=== PATIENT | female | born 1985 | race Caucasian/White ===

== ENCOUNTER 2017-03-16 08:30 | Inpatient (IN) | payer OTHER ==
[2017-03-16 10:14] VITALS: BMI 39.8
[2017-03-16 10:55] LABS: BASO % 0.3 % (0-2.0); EOS % 0.6 % (0-4.5); HEMATOCRIT 37.5 % (32.4-45.2); HEMOGLOBIN 11.8 GM/dL (10.7-15.3); LYMPH % 22.7 % (8-40); MCH 24.7 pg (25.7-33.7); MCHC 31.5 g/dl (32.0-36.0); MEAN CELL VOLUME 78.2 fl (80-96); MEAN PLT VOLUME 9.7 fl (7.5-11.1); MONO % 6.5 % (3.8-10.2); NEUT % 69.9 % (42.8-82.8); PLATELET COUNT 241 K/MM3 (134-434); RBC 4.79 M/mm3 (3.60-5.2); RDW 15.5 % (11.6-15.6); WHITE BLOOD COUNT 9.1 K/mm3 (4.0-10.0)
[2017-03-16] MEDS ORDERED: BUTORPHANOL TARTRATE 1 MG/ML VIAL ONE ×2 (10:56)
[2017-03-16] MEDS ORDERED: PROMETHAZINE HCL 25 MG/1 ML VIAL ONE (10:56)
[2017-03-16 11:18] LABS: INR 0.92 (0.82-1.09); PROTHROMBIN TIME (PATIENT) 10.4 SEC (9.98-11.88)
[2017-03-16 11:27] LABS: CHLORIDE 108 mmol/L (98-107); POTASSIUM 4.3 mmol/L (3.5-5.1); SODIUM 139 mmol/L (136-145)
[2017-03-16] MEDS ORDERED: BUTORPHANOL TARTRATE 1 MG/ML VIAL IVPB ONE (11:30)
[2017-03-16] MEDS ORDERED: DEXTROSE 5%-LACTATED RINGERS 1,000 ML IV SCH (11:30)
[2017-03-16 11:34] LABS: ANION GAP 9 (8-16); BLOOD UREA NITROGEN 13 mg/dL (7-18); CALCIUM 8.3 mg/dL (8.5-10.1); CO2 22 mmol/L (21-32); CREATININE 0.6 mg/dL (0.55-1.02); GLUCOSE,RANDOM 75 mg/dL (74-106)
[2017-03-16] MEDS ORDERED: PROMETHAZINE HCL 25 MG/1 ML VIAL IVPB ONE (11:45)
--- NOTE | 2017-03-16 11:57 | HP ---
Past Medical History - Admission Chief Complaint: Labor pain History of Present Illness: 31 yo yo EDC 03/14/17, @ 40 weeks gestation, admitted for labor pain. She denies any vaginal bleeding, nor ROM. History Source: Patient Limitations to Obtaining History: No Limitations - Past Medical History ...: 4 ...Para: 3 ...Term: 3 ...LMP: 06/22/16 ... Weeks Gestation by Dates: 38.1 ...EDC by Dates: 03/29/17 ...EDC by Sono: 03/14/17 Heme/Onc: Yes: Anemia - Past Surgical History Past Surgical History: Yes: None Hx Myomectomy: No Hx Transabdominal Cerclage: No - Smoking History Smoking history: Never smoked Have you smoked in the past 12 months: No - Alcohol/Substance Use Hx Alcohol Use: No History of Substance Use: reports: None Home Medications - Allergies Allergies/Adverse Reactions: Allergies Allergy/AdvReac Type Severity Reaction Status Date / Time No Known Allergies Allergy Verified 06/16/11 04:21 - Home Medications Home Medications: Ambulatory Orders Iron 1 tab PO DAILY 03/16/17 Vitamins (Sjr) - 1 tab PO DAILY 03/16/17 Family Disease History - Family Disease History Family History: Unremarkable Review of Systems - Review of Systems Constitutional: reports: No Symptoms Eyes: reports: No Symptoms HENT: reports: No Symptoms Neck: reports: No Symptoms Cardiovascular: reports: No Symptoms Respiratory: reports: No Symptoms Gastrointestinal: reports: No Symptoms Genitourinary: reports: Pain Neurological: reports: No Symptoms Endocrine: reports: No Symptoms Hematology/Lymphatic: reports: No Symptoms Psychiatric: reports: No Symptoms Pain Intensity: 7 Physical Exam - Maternity Vital Signs: Vital Signs Temperature 98.0 F 03/16/17 10:00 Pulse Rate 83 03/16/17 11:00 Respiratory Rate 20 03/16/17 11:00 Blood Pressure 131/71 03/16/17 11:00 O2 Sat by Pulse Oximetry (%) Constitutional: Yes: Well Nourished Eyes: Yes: Conjunctiva Clear HENT: Yes: Atraumatic Neck: Yes: Supple Cardiovascular: Yes: Regular Rate and Rhythm Lungs: Clear to auscultation - Vaginal Exam/OB Dilatation (cm): 3 Effacement (%): 90 Amniotic Membrane Status: Intact Station: -2 - Physical Exam ...Motor Strength: WNL Psychiatric: Yes: Alert, Oriented - Labs Lab Results: CBC, BMP 03/16/17 10:15 Assessment/Plan Active labor Admit to L&D Analgesia as needed Anticipate
[2017-03-16] MEDS ORDERED: ELECTROLYTE-148 SOLN 1,000 ML IV SCH (12:00)
[2017-03-16] MEDS ORDERED: OXYTOCIN 15 UNITS/ LR 250 ML 15 UNIT/250 ML INFUS.BAG IVPB SCH (12:00)
--- NOTE | 2017-03-16 12:03 | PN ---
Progress Note (short form) - Note Progress Note: Patient evaluated, She's lying comfortably in bed. She's status post stadol. FHR : Reassuring VE : 5-6 / 100 / -1 AROM ( clear ) A / P : Active labor Pitocin augmentation Anticipate
[2017-03-16] MEDS ORDERED: OXYTOCIN 20 UNITS in 0.9% NS 40 UNIT/2,000 ML INFUS.BAG IV ONE (12:32)
[2017-03-16] MEDS ORDERED: LIDOCAINE HCL 1% PRESERVATIVE FREE - 30ML VIAL ONE (12:32)
[2017-03-16] MEDS ORDERED: BENZOCAINE 28 GM HEMORRHOIDAL OINTMENT TP PRN (14:02)
[2017-03-16] MEDS ORDERED: ACETAMINOPHEN 325 MG TABLET (FP) PO PRN (14:02)
[2017-03-16] MEDS ORDERED: METHYLERGONOVINE MALEATE 0.2 MG/1 ML AMP IM PRN (14:02)
[2017-03-16] MEDS ORDERED: WITCH HAZEL 50% (TUCKS) 40 PAD/JAR PAD TP PRN (14:02)
[2017-03-16] MEDS ORDERED: BENZOCAINE 20% 57 GM BOTTLE TP PRN (14:02)
[2017-03-16] MEDS ORDERED: BISACODYL 10 MG SUPP.RECT RC PRN (14:02)
[2017-03-16] MEDS ORDERED: IBUPROFEN 600 MG TABLET (FP) PO PRN (14:02)
--- NOTE | 2017-03-16 14:05 | PN ---
Delivery - Delivery Vaginal Delivery: Spontaneous Type of Anesthesia: Local Episiotomy/Laceration: None EBL (cc): 300 Delivery, Single - Feeding Plan Initial Plan: Elected not to breastfeed exclusively throughout hospitalization Remarks - Remarks Remarks: Normal spontaneous vaginal delivery of a live over intant perineum. Nose / Oropharynx suction @ perineum. Cord clamp and cut. Placenta expelled spontaneously intact. Mother in stable condition
[2017-03-16] MEDS ORDERED: OXYTOCIN 20 UNITS in 0.9% NS 20 UNIT/1,000 ML INFUS.BAG IV SCH (14:15)
[2017-03-16] MEDS: FERROUS SO4 325 MG TABLET (FP) PO SCH (19:11)
--- NOTE | 2017-03-17 06:04 | PN ---
Post Progress Note - Subjective Subjective: 31 yo Para 4 status post vaginal delivery, seen and evaluated. Doing well. Type of Delivery: Vital Signs: Vital Signs Temperature 98 F 03/17/17 05:52 Pulse Rate 79 03/17/17 05:52 Respiratory Rate 18 03/17/17 05:52 Blood Pressure 127/67 03/17/17 05:52 O2 Sat by Pulse Oximetry (%) Breast Exam: Yes: Soft Uterus: Yes: Fundus Firm Abdomen/GI: Yes: Abdomen soft, Tolerating PO Lochia: Yes: Rubra Lochia, amount: Moderate Extremities: Yes: Calves non-tender Perineum: Yes: Intact Activity: Ambulating - Labs Labs: CBC WBC 9.1 K/mm3 (4.0-10.0) 03/16/17 10:15 RBC 4.79 M/mm3 (3.60-5.2) 03/16/17 10:15 Hgb 11.8 GM/dL (10.7-15.3) D 03/16/17 10:15 Hct 37.5 % (32.4-45.2) 03/16/17 10:15 MCV 78.2 fl (80-96) L 03/16/17 10:15 MCH 24.7 pg (25.7-33.7) L 03/16/17 10:15 MCHC 31.5 g/dl (32.0-36.0) L 03/16/17 10:15 RDW 15.5 % (11.6-15.6) 03/16/17 10:15 Plt Count 241 K/MM3 (134-434) 03/16/17 10:15 MPV 9.7 fl (7.5-11.1) D 03/16/17 10:15 Neutrophils % 69.9 % (42.8-82.8) 03/16/17 10:15 Lymphocytes % 22.7 % (8-40) 03/16/17 10:15 Monocytes % 6.5 % (3.8-10.2) 03/16/17 10:15 Eosinophils % 0.6 % (0-4.5) 03/16/17 10:15 Basophils % 0.3 % (0-2.0) 03/16/17 10:15 Assessment/Plan Status post normal vaginal delivery Stable Continue routine care
[2017-03-17 08:07] LABS: BASO % 0.4 % (0-2.0); HEMATOCRIT 33.8 % (32.4-45.2); HEMOGLOBIN 10.6 GM/dL (10.7-15.3); LYMPH % 30.9 % (8-40); MCH 24.6 pg (25.7-33.7); MCHC 31.5 g/dl (32.0-36.0); MEAN CELL VOLUME 78.1 fl (80-96); MEAN PLT VOLUME 9.2 fl (7.5-11.1); MONO % 7.9 % (3.8-10.2); NEUT % 59.8 % (42.8-82.8); PLATELET COUNT 202 K/MM3 (134-434); RBC 4.33 M/mm3 (3.60-5.2); RDW 15.2 % (11.6-15.6); WHITE BLOOD COUNT 9.7 K/mm3 (4.0-10.0)
[2017-03-17] MEDS: FERROUS SO4 325 MG TABLET (FP) PO SCH ×3 (09:19→18:58)
[2017-03-17] MEDS ORDERED: DIPHTH,PERTUSS(ACELL),TET 0.5 ML DISP.SYRIN IM ONE (10:00)
[2017-03-17] MEDS: PRENATAL VITAMINS W/ FOLIC ACID TABLET (FP) PO SCH (10:29)
[2017-03-17] MEDS ORDERED: SENNOSIDES/DOCUSATE COMBO (SENNA PLUS) TABLET (UD) PO PRN (22:00)
[2017-03-18] MEDS: FERROUS SO4 325 MG TABLET (FP) PO SCH ×2 (08:18→14:12)
[2017-03-18] MEDS: PRENATAL VITAMINS W/ FOLIC ACID TABLET (FP) PO SCH (09:45)
--- NOTE | 2017-03-18 09:51 | DS ---
Physical Exam-CERTIFIED PERSONAL FINANCE COUNSELOR Vital Signs: Vital Signs Temperature 97.9 F 03/17/17 21:52 Pulse Rate 78 03/17/17 21:52 Respiratory Rate 20 03/17/17 21:52 Blood Pressure 129/82 03/17/17 21:52 O2 Sat by Pulse Oximetry (%) Constitutional: Yes: Well Nourished Eyes: Yes: Conjunctiva Clear HENT: Yes: Atraumatic Neck: Yes: Supple Cardiovascular: Yes: Regular Rate and Rhythm Respiratory: Yes: Regular, CTA Bilaterally Gastrointestinal: Yes: Normal Bowel Sounds Vaginal Exam: Yes: Normal Cervix: Yes: Normal Uterus: Yes: Firm ....Post : Yes: Uterus firm, Moderate lochia serosa Breast(s): Yes: WNL Musculoskeletal: Yes: WNL Extremities: Yes: WNL Neurological: Yes: Alert, Oriented ...Motor Strength: WNL Psychiatric: Yes: Alert, Oriented Labs: CBC, BMP 03/17/17 07:45 03/16/17 10:15 Delivery - Delivery Vaginal Delivery: Spontaneous Type of Anesthesia: Local Episiotomy/Laceration: None EBL (cc): 300 Delivery, Single - Stages of Labor Date 1st Stage Initiatied: 03/16/17 Time 1st Stage Initiated: 06:30 Date 2nd Stage Initiated: 03/16/17 Time 2nd Stage Initiated: 13:40 Date of Delivery: 03/16/17 Time of Delivery: 13:55 Time Placenta Delivered: 14:05 - 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 Gender: Female Weight: 9 lb 3 oz Position: Left, OA Total Hours ROM (Hrs/Mins): 2 hr 15min - 1 Minute Total Score: 9 5 Minutes Total Score: 9 - [place] Feeding Plan Initial Plan: Elected not to breastfeed exclusively throughout hospitalization Discharge Summary Reason For Visit: LABOR Procedures: Principal: Normal spontaneous vaginal delivery Hospital Course: Routine care Condition: Good - Instructions Diet, Activity, Other Instructions: Regular diet No douching, no sexual intercourse x 6 weeks F/U in clinic in 6 weeks - Home Medications Comprehensive Discharge Medication List: Ambulatory Orders Iron 1 tab PO DAILY 03/16/17 Vitamins (Sjr) - 1 tab PO DAILY 03/16/17
[2017-03-18 10:32] VITALS: BP 103/65; PULSE 84; TEMP 98
== END 2017-03-18 13:05 | disposition home or self-care (01) | DRG 560 ==
LOC: JLDR 08:30 → J3W 15:30
PROVIDERS: ADMIT Obstetrics & Gynecology; ATTEND Obstetrics & Gynecology
PROC: 10E0XZZ Delivery of Products of Conception, External Approach (ICD-10-PCS; principal; 2017-03-16)
DX: O80 Encounter for full-term uncomplicated delivery (principal); Z3A.40 40 weeks gestation of pregnancy; Z37.0 Single live birth
CPT/HCPCS: 36415; 59409; 80048; 85025; 85610; 85730; 86593; 86850; 86900; 86901; 90715

== ENCOUNTER 2020-04-11 17:49 | Emergency (ER) | payer OTHER ==
[2020-04-11 18:07] VITALS: BP 119/68; PULSE 69; TEMP 98.5; BMI 34.0
== END 2020-04-11 19:15 | disposition home or self-care (01) ==
LOC: JERFT 17:49
DX: L50.0 Allergic urticaria (principal)
CPT/HCPCS: 99282-25